=== PATIENT | female | born 1990 | race Caucasian/White ===

== ENCOUNTER 2017-04-30 16:36 | Emergency (ER) | payer MEDICAID ==
[~2017-04-30] VITALS: Ht 170.2 cm; Wt 61.8 kg
[~2017-04-30 16:36] MED LIST: ASPI-496 PO; TOPI100T24 PO; VALS160T3 PO
[2017-04-30 16:37] VITALS: BP 128/95
== END 2017-04-30 18:13 | disposition home or self-care (01) ==
LOC: ED 18:07
DX: S90.31XA Contusion of right foot, initial encounter (principal); E87.6 Hypokalemia; G43.909 Migraine, unspecified, not intractable, without status migrainosus; N83.209 Unspecified ovarian cyst, unspecified side; W51.XXXA Accidental striking against or bumped into by another person, initial encounter; Y93.66 Activity, soccer; Y99.8 Other external cause status; Y92.328 Other athletic field as the place of occurrence of the external cause
CPT/HCPCS: 99284